=== PATIENT | female | born 1945 | race Caucasian/White ===

== ENCOUNTER → 2017-03-25 | Day surgery (SDC) | payer MEDICARE, OTHER ==
[~2017-03-25] MED LIST: ACETAMINOPHEN 1000 MG/100 ML 100 ML IV ONE; BACITRACIN TOP OINT 15 GM TUBE ONE; LIDOCAINE 1%/EPINEPHrine 1:200,000 PF SOLN 30 ML VIAL ONE; MIDAZOLAM HCL 2 MG/2 ML VIAL ONE; ONDANSETRON HCL 4 MG/2 ML VIAL IV PUSH ONE; PROPOFOL 200 MG/20 ML AMP IV ONE
--- NOTE | 2017-03-25 10:57 | TN ---
cc: CHARITY GONZALEZ M.D. DATE OF SURGERY: 03/25/2017 PREOPERATIVE DIAGNOSIS Palpable masses on the scalp in four different locations. POSTOPERATIVE DIAGNOSIS Palpable masses on the scalp in four different locations. PROCEDURE Excision four separate scalp lesions consistent with an epidermal inclusion or pilar cyst 1 cm diameter x four. SURGEON Dr. Charity Gonzalez. ANESTHESIA General with laryngeal mask. INDICATIONS This is a pleasant 71-year-old woman who has multiple skin and subcutaneous abnormalities. She was sent in consultation by Dr. Greenwood from Dr. [facility] office for surgical treatment of these palpable masses on the scalp. INTRAOPERATIVE FINDINGS Consistent with epidermal inclusion or pilar cysts excised in their entirety and sent to pathology. Estimated blood loss was less than 15 mL. DESCRIPTION OF PROCEDURE IN DETAIL The patient was identified as Amara Mahoney, taken to the operating room and placed in the supine position. Sequential compression devices were placed on bilateral lower extremities. Following induction of adequate general anesthesia with a laryngeal mask, the areas of concern which had been marked in the preoperative holding area were uncovered from the hair and a clipping device used to clip the hair off over the top of the masses. With the patient first in supine position three of the more anterior oriented masses were prepped, draped in usual sterile fashion with Betadine paint. Elliptical incisions and local anesthetic were used following a time-out procedure which was completed to the satisfaction of everyone within the room. Elliptical incision was carried out with a scalpel after instillation of local anesthetic. The mass was from surrounding tissues. Pressure and electrocautery were used for hemostasis and the wounds all three sites were closed with running 4-0 Nylon sutures. There was excellent hemostasis and nice wound approximation. The patient was then reprepped and draped, turned slightly on the beanbag with all pressure points padded so the posterior left side mass could be addressed. Again hair was clipped, the area was prepped with Betadine and local anesthetic placed. Elliptical incision was carried out with scalpel and underlying mass was excised from surrounding tissues and passed off the field for pathologic evaluation with the three other masses. The wound was irrigated with local anesthetic. Local anesthetic was placed and hemostasis controlled with electrocautery. The wound was closed with a running 4-0 Nylon stitch. Dressings were applied with dry dressings as needed and a dab of antibiotic ointment. The patient tolerated the procedures without apparent complication. Sponge, needle and instrument counts were correct at the end of the case. MD MOOKIE Ferrara/NITHIN /10:27 AM /10:41 AM
== END | disposition home or self-care (01) ==
LOC: ESDC 08:15
PROVIDERS: ATTEND Surgery Trauma Surgery
DX: L72.11 Pilar cyst (principal); D22.4 Melanocytic nevi of scalp and neck
CPT/HCPCS: 00300; 11420; 11421; 11422; 88304; 88305; J0131; J2250; J2405; J3010